=== PATIENT | female | born 1995 | race Caucasian/White ===

== ENCOUNTER 2021-01-07 20:14 | Emergency (ER) | payer MEDICAID, SELFPAY ==
[~2021-01-07] VITALS: Ht 167.6 cm; Wt 95.3 kg
[2021-01-07 20:55] VITALS: BP_SYST 150
--- NOTE | 2021-01-07 20:55 | NUR ---
Patient to ER tent for evaluation.
--- NOTE | 2021-01-07 21:00 | NUR ---
Patient brought in complaining of cough and sore throat x 3 days. No other complaints/injuries per patient or as noted.
[2021-01-07 21:50] LABS: STREPTOCOCCUS A SCREEN (RAPID) NEGATIVE (NEGATIVE)
--- NOTE | 2021-01-07 22:14 | NUR ---
ER Dr. VIVEROS at bedside examining patient.
[2021-01-07 22:38] VITALS: BP_SYST 138
--- NOTE | 2021-01-07 22:38 | NUR ---
Patient given written and verbal discharge instructions and verbalizes understanding. ER MD discussed with patient the results and treatment provided. Patient in stable condition. ID arm band removed. No Rx given. Patient educated on pain management and to follow up with PMD. Pain Scale 0/10 Opportunity for questions provided and answered.
== END 2021-01-07 22:38 | disposition home or self-care (01) ==
LOC: SED 20:14
DX: J06.9 Acute upper respiratory infection, unspecified (principal); Z88.1 Allergy status to other antibiotic agents; Z20.822 Contact with and (suspected) exposure to COVID-19
CPT/HCPCS: 36415; 86403; 87081; 99283